=== PATIENT | female | born 2000 | race Caucasian/White ===

== ENCOUNTER 2024-12-29 15:47 | Emergency (ER) | payer MEDICAID ==
[~2024-12-29] VITALS: Ht 170.2 cm; Wt 86.0 kg
[2024-12-29 16:01] VITALS: O2SAT 98
[2024-12-29 18:36] VITALS: BP 130/77; PULSE 95; RESP 18; TEMP 37; O2SAT 98
[2024-12-29] MEDS: IBUPROFEN 600MG TABLET PO ONE (18:36)
[2024-12-29] MEDS ORDERED: CIPHCO EACH EAR (19:05)
[2024-12-29] MEDS ORDERED: IBUP-2029 MT (19:06)
== END 2024-12-29 19:28 | disposition home or self-care (01) ==
LOC: ER 15:47
DX: H60.93 Unspecified otitis externa, bilateral (principal)
CPT/HCPCS: 99283